=== PATIENT | male | born 1945 | race Caucasian/White ===

== ENCOUNTER 2016-10-20 07:43 | Day surgery (SDC) | payer MEDICARE ==
[2016-10-20] MEDS ORDERED: SODIUM CHLORIDE 0.9% 1,000 ML IV ONE (08:24)
[2016-10-20] MEDS ORDERED: ALPRAZolam 0.5 MG TAB PO PRN (08:33)
[2016-10-20] MEDS ORDERED: SODIUM CHLORIDE 0.9% 1,000 ML in EMPTY BAG 1 BAG IV ONE (08:33)
[2016-10-20] MEDS ORDERED: ASPIRIN 325 MG TAB PO STA (08:33)
[2016-10-20] MEDS ORDERED: ALPRAZolam 0.25 MG TAB PO PRN (08:33)
[2016-10-20] MEDS ORDERED: NITROGLYCERIN SL TABS 0.4 MG TAB SUBLINGUAL PRN (08:33)
[2016-10-20] MEDS ORDERED: ATORVASTATIN 80 MG TAB PO STA (08:33)
[2016-10-20 08:39] LABS: Basophils # (A) 0.1 k/uL (0-0.2); Basophils % (A) 1 %; CH 33.1; CHCM 34.4; Eosinophils # (A) 0.5 k/uL (0-0.7); Eosinophils % (A) 7 %; HCT 43.8 % (39.0-53.0); HGB 14.7 gm/dL (13.0-17.5); Luc # (Auto) 0.25; Luc % (Auto) 3; Lymphocytes # (A) 2.1 k/uL (1.0-4.8); Lymphocytes % (A) 28 %; MCH 32.6 pg (25.0-35.0); MCHC 33.7 g/dL (31.0-37.0); MCV 96.7 fL (80.0-100.0); Monocytes # (A) 0.6 k/uL (0-1.0); Monocytes % (A) 8 %; Neutrophils # (A) 3.8 k/uL (1.3-7.7); Neutrophils % (A) 52 %; RBC 4.53 m/uL (4.30-5.90); RDW 14.2 % (11.5-15.5); WBC 7.4 k/uL (3.8-10.6); WBC (Perox) 7.44
[2016-10-20 08:53] LABS: Anion Gap 11 mmol/L; Blood Urea Nitrogen 13 mg/dL (9-20); Calcium 9.4 mg/dL (8.4-10.2); Carbon Dioxide 23 mmol/L (22-30); Chloride 108 mmol/L (98-107); Glucose 105 mg/dL (74-99); Non-African American GFR(MDRD) >60 (>60 ml/min/1.73 sqM); Sodium 142 mmol/L (137-145)
[2016-10-20] MEDS ORDERED: MIDAZOLAM 2 MG/2 ML VIAL IV ONE ×2 (09:36→12:35)
[2016-10-20] MEDS ORDERED: LIDOCAINE 2% INJ 20 MG/ML SQ ONE ×3 (09:36→12:58)
[2016-10-20] MEDS ORDERED: diphenhydrAMINE 50 MG/ML 1 ML VIAL IVP ONE (09:36)
[2016-10-20] MEDS ORDERED: IOHEXOL 350 MG/ML 125ML BOTTLE INJ ONE ×2 (10:22→13:00)
[2016-10-20] MEDS ORDERED: LIDOCAINE 2% INJ 20 MG/ML (20 ML MDV) ONE (12:12)
[2016-10-20] MEDS ORDERED: MIDAZOLAM 2 MG/2 ML VIAL ONE (12:30)
[2016-10-20] MEDS ORDERED: HYDROmorphone 2 MG/ML 1 ML SYRINGE ONE (12:30)
[2016-10-20] MEDS ORDERED: HYDROmorphone 2 MG/ML 1 ML SYRINGE IV ONE (12:32)
[2016-10-20] MEDS ORDERED: BIVALIRUDIN BOLUS 250 MG/50 ML IV ONE (12:34)
[2016-10-20] MEDS ORDERED: BIVALIRUDIN 250 MG in SODIUM CHLORIDE 0.9% 50 ML IV ONE (12:35)
[2016-10-20] MEDS ORDERED: NITROGLYCERIN 1000MCG/10ML SYRINGE INTRACORON ONE (12:50)
[2016-10-20] MEDS ORDERED: CLOPIDOGREL 75 MG TAB ONE (12:52)
[2016-10-20] MEDS ORDERED: CLOPIDOGREL 75 MG TAB PO ONE (12:55)
[2016-10-20] MEDS ORDERED: ATROPINE SULFATE 0.1 MG/ML 10ML SYRINGE IV PRN (13:27)
[2016-10-20] MEDS ORDERED: RX INFO: IV CONTRAST WAS GIVEN 1 EACH MISC MISCELLANE PRN (13:27)
[2016-10-20] MEDS ORDERED: MAG HYDROX/AL HYDROX/SIMETH 30 ML CUP PO PRN (13:27)
[2016-10-20] MEDS ORDERED: ZOLPIDEM 5 MG TAB PO PRN (13:27)
[2016-10-20] MEDS ORDERED: SODIUM CHLORIDE 0.9% 1,000 ML IV SCH (13:30)
[2016-10-20 17:57] VITALS: BMI 27.4
[2016-10-20] MEDS: METOPROLOL TARTRATE 50 MG TAB PO SCH (20:31)
[2016-10-20] MEDS: APIXABAN 2.5 MG TABLET PO SCH (20:31)
[2016-10-20] MEDS ORDERED: ATORVASTATIN 40 MG TAB PO SCH (21:00)
[2016-10-20 21:25] VITALS: RESP 18
--- NOTE | 2016-10-20 22:53 | CC ---
CARDIAC CATHETERIZATION REPORT INDICATION: Unstable angina. PROCEDURE NOTE: After obtaining informed consent, left heart catheterization, coronary angiogram and selective injection of the bypass grafts were performed via the right femoral artery using standard [place] catheters. The patient tolerated the procedure well without any obvious immediate complications. The patient received moderate conscious sedation. Total sedation time was 30 minutes. FINDINGS: 1. Hemodynamics. Left ventricular end-diastolic pressure was 18 mm. There is no significant gradient across the aortic valve. 2. Left ventriculogram. Left ventriculogram was not performed. Angiographic data: 1. Left main coronary artery. Left main coronary artery appears calcified but is free of stenosis. It divides into left anterior descending coronary artery and circumflex coronary artery. 2. LAD shows 90% stenosis in its midportion. The proximal part was previously stented. There is competitive flow into the distal LAD. 3. Circumflex coronary artery shows a 95% ostial stenosis. 4. Right coronary artery is a large dominant vessel that shows some moderate atherosclerotic plaque in its proximal part. Selective injection of the bypass grafts 1. MOYA to LAD appears patent. Proximal and distal anastomotic sites are free of disease. [place] vessel looks good. 2. Radial artery graft to the diagonal. Graft is patent. Proximal and distal anastomotic sites are free of disease and the [place] vessel appears patent. CONCLUSIONS: 1. [place] 3-vessel coronary artery disease as described above with patent MOYA to LAD, venous graft to diagonal. 2. Severe stenosis involving the ostial portion of the [place] circumflex coronary artery. PLAN: I am going to review the angiographic data with Dr. Duncan, the on-call aircraft part assembler, and see if the patient is a candidate for catheter-based revascularization of the [place] circumflex. MMODL / IJN: [id number] /
--- NOTE | 2016-10-21 06:15 | PTCA ---
PERCUTANEOUSTRANS CORORONARY ANGIOGRAPHY DATE OF SERVICE: 10/20/2016. PERFORMING PHYSICIAN: Chong Duncan MD, sports manager. PROCEDURE PERFORMED: Successful stenting of the ostial/proximal left circumflex using a 3.5 x 28 mm Xience drug-eluting stent with good angiographic results. INDICATION: This is a pleasant 71-year-old gentleman who sees Dr. Beltran as an outpatient who is known to have CAD with prior coronary artery bypass grafting was experiencing chest discomfort and underwent a heart catheterization, and that showed critical disease involving ostial/proximal unprotected left circumflex coronary artery. He was brought today to undergo an intervention on the left circumflex. APPROACH: Right common femoral artery. COMPLICATION: None. LEVEL OF SEDATION: Moderate with sedation length of 30 minutes. PROCEDURE DESCRIPTION: After diagnostic heart catheterization was performed by Dr. Beltran and after reviewing the angiogram, we decided to pursue with an intervention on the left circumflex. Anticoagulation was initiated using Angiomax. Subsequently, I took an XB3.5 guide and the left main was engaged. A whisper wire was used to wire the left circumflex. Subsequently I did a pre-dilatation using the 3.0 x 12 mm balloon. After that, I deployed a 3.5 x 28 mm Xience ERICA where the stent was positioned under fluoroscopy guidance and deployed under 14 atmospheres for 30 seconds. After that, I postdilated using 3.75 NC balloon. The final angiogram showed good angiographic results without perforation and without dissection. The procedure was completed without any complication. POSTPROCEDURE MANAGEMENT: 1. Dual anti-platelet therapy. 2. Risk factor modifications. 3. Follow up with the patient. MMODL / IJN: [id number] /
[2016-10-21 06:17] LABS: Basophils # (A) 0.1 k/uL (0-0.2); Basophils % (A) 1 %; CH 32.8; CHCM 33.8; Eosinophils # (A) 0.5 k/uL (0-0.7); Eosinophils % (A) 7 %; HCT 41.7 % (39.0-53.0); HDW 2.28; HGB 13.8 gm/dL (13.0-17.5); Luc # (Auto) 0.16; Luc % (Auto) 2; Lymphocytes # (A) 1.1 k/uL (1.0-4.8); Lymphocytes % (A) 16 %; MCH 32.4 pg (25.0-35.0); MCHC 33.2 g/dL (31.0-37.0); MCV 97.8 fL (80.0-100.0); Mean Platelet Volume 8.2; Monocytes # (A) 0.6 k/uL (0-1.0); Monocytes % (A) 9 %; Neutrophils # (A) 4.4 k/uL (1.3-7.7); Neutrophils % (A) 65 %; RBC 4.26 m/uL (4.30-5.90); RDW 14.6 % (11.5-15.5); WBC 6.8 k/uL (3.8-10.6)
[2016-10-21 06:35] LABS: Anion Gap 10 mmol/L; Blood Urea Nitrogen 12 mg/dL (9-20); Calcium 8.8 mg/dL (8.4-10.2); Carbon Dioxide 25 mmol/L (22-30); Chloride 106 mmol/L (98-107); Glucose 89 mg/dL (74-99); Non-African American GFR(MDRD) >60 (>60 ml/min/1.73 sqM); Potassium 4.3 mmol/L (3.5-5.1); Sodium 141 mmol/L (137-145)
[2016-10-21] MEDS: APIXABAN 2.5 MG TABLET PO SCH (08:34)
[2016-10-21] MEDS: METOPROLOL TARTRATE 50 MG TAB PO SCH (08:35)
[2016-10-21 08:39] VITALS: BP 131/76; PULSE 103; TEMP 97.6
[2016-10-21] MEDS ORDERED: ASPIRIN 81 MG PO SCH (09:00)
[2016-10-21] MEDS ORDERED: CLOPIDOGREL 75 MG TAB PO SCH (09:00)
[2016-10-21] MEDS ORDERED: ASPIRIN 325 MG TAB PO SCH (09:00)
[2016-10-21] MEDS ORDERED: amLODIPine 10 MG TAB PO SCH (09:00)
--- NOTE | 2016-10-21 09:24 | P.DS ---
Providers Date of admission: date of admission is 10/20/2016 Expected date of discharge: 10/21/16 Attending physician: Akhil Beltran Consults: 10/20/16 13:27 Consult Physician Routine Consulting Provider: [facility] Consult Reason/Comments: Post Interventional patient Do you want consulting provider notified?: Already Contacted Primary care physician: Leonard Morse Hospital Course: 71-year-old gentleman with history of coronary artery disease status post CABG ischemic cardiomyopathy and chronic atrial fibrillation presented to me with symptoms of unstable angina and was advised to undergo cardiac catheterization His cardiac catheterization revealed [place] three-vessel coronary artery disease with patent MOYA to LAD and radial artery graft to the diag. He had 90 % stenosis involving ostial circumflex coronary artery and had angioplasty with stent placement of the same. This morning patient is doing well and is free of symptoms. he denies chest pain or difficulty in breathing. patient appears comfortable at rest vital signs are stable chest exam reveals good air entry bilaterally heart exam reveals first and second heart sounds no gallop abdomen is soft exam extremities did not reveal any edema per for pulses are felt groin is free of bleeding bradycardia hematoma for pulses are intact labs from this morning have been reviewed hemoglobin is normal platelet count is stable creatinine is normal patient will be followed in my office in 3 weeks time Procedures: left heart catheterization coronary angiogram selective injection of the bypass grafts Angioplasty with stent placement of circumflex coronary artery Patient Condition at Discharge: Fair Plan - Discharge Summary New Discharge Prescriptions: New Apixaban [Eliquis] 2.5 mg PO BID #60 tab Aspirin 81 mg PO DAILY #30 Clopidogrel [Plavix] 75 mg PO DAILY #30 tab Nitroglycerin Sl Tabs [Nitrostat] 0.4 mg SUBLINGUAL Q5M PRN #25 tab PRN Reason: Chest Pain Continue amLODIPine [Norvasc] 10 mg PO DAILY Multivitamins, Thera [Multivitamin (formulary)] 1 each PO DAILY@1200 Metoprolol Tartrate [Lopressor] 50 mg PO BID Atorvastatin [Lipitor] 40 mg PO HS Discontinued Aspirin 325 mg PO HS Apixaban [Eliquis] 5 mg PO BID Discharge Medication List Metoprolol Tartrate [Lopressor] 50 mg PO BID 09/12/13 [History] Multivitamins, Thera [Multivitamin (formulary)] 1 each PO DAILY@1200 09/12/13 [ History] amLODIPine [Norvasc] 10 mg PO DAILY 09/12/13 [History] Atorvastatin [Lipitor] 40 mg PO HS 10/19/16 [History] Apixaban [Eliquis] 2.5 mg PO BID #60 tab 10/21/16 [Rx] Aspirin 81 mg PO DAILY #30 10/21/16 [Rx] Clopidogrel [Plavix] 75 mg PO DAILY #30 tab 10/21/16 [Rx] Nitroglycerin Sl Tabs [Nitrostat] 0.4 mg SUBLINGUAL Q5M PRN #25 tab 10/21/16 [Rx ] Follow up Appointment(s)/Referral(s): Akhil Beltran MD [STAFF PHYSICIAN] - 11/10/16 2:15 pm Patient Instructions/Handouts: *[facility] - After Heart Catheterization - Display Carver Instructions
[2016-10-21] MEDS ORDERED: MULTIVITAMINS, THERA 1 EACH TAB PO SCH (12:00)
== END 2016-10-21 11:06 | disposition home or self-care (01) ==
LOC: CATHCVL 07:43 → 6SEL 13:00 → CATHCVL 10-21 11:06
PROVIDERS: ATTEND Internal Medicine Cardiovascular Disease
DX: I25.110 Atherosclerotic heart disease of native coronary artery with unstable angina pectoris (principal); E78.5 Hyperlipidemia, unspecified; Z82.49 Family history of ischemic heart disease and other diseases of the circulatory system; F17.200 Nicotine dependence, unspecified, uncomplicated; I25.5 Ischemic cardiomyopathy; Z79.899 Other long term (current) drug therapy; I48.2 Chronic atrial fibrillation; Z95.1 Presence of aortocoronary bypass graft; Z79.82 Long term (current) use of aspirin; Z88.7 Allergy status to serum and vaccine; Z79.01 Long term (current) use of anticoagulants
CPT/HCPCS: 99152 ×2; 99153 ×2; 93458; 80048 ×2; 85025 ×2; C9600; C1769 ×4; C1725 ×2; C1887; C1894; C1874; C1760; J2001; J2250; J1170; J1200; J0583; Q9967

== ENCOUNTER → 2017-12-14 | Outpatient (CLI) | payer MEDICARE ==
[2017-12-14 17:45] LABS: HCT 42.9 % (39.0-53.0); HGB 14.1 gm/dL (13.0-17.5); MCH 31.1 pg (25.0-35.0); MCHC 32.8 g/dL (31.0-37.0); Mean Platelet Volume 6.7; Platelet Count 271 k/uL (150-450); RBC 4.52 m/uL (4.30-5.90); RDW 13.5 % (11.5-15.5); WBC 8.9 k/uL (3.8-10.6)
[2017-12-15 05:21] LABS: Anion Gap 9.9 mmol/L (4.00-12.00); Carbon Dioxide 22.1 mmol/L (21.6-31.8); Magnesium 1.9 mg/dL (1.5-2.4); Potassium 3.9 mmol/L (3.5-5.5)
== END | disposition home or self-care (01) ==
LOC: LABWHC1 16:42
PROVIDERS: ATTEND Internal Medicine Cardiovascular Disease
DX: Z01.812 Encounter for preprocedural laboratory examination (principal); I25.5 Ischemic cardiomyopathy; I25.810 Atherosclerosis of coronary artery bypass graft(s) without angina pectoris
CPT/HCPCS: 36415; 80051; 82565; 82947; 83735; 84520; 85027